=== PATIENT | female | born 1940 | race Caucasian/White ===

== ENCOUNTER → 2023-12-11 06:25 | Outpatient (CLI) | payer OTHER ==
[2023-12-11 08:00] LABS: HEMATOCRIT 35.8 % (36.0-45.00); HEMOGLOBIN 11.8 g/dL (12.0-15.00); MEAN CORPUSCULAR HEMOGLOBIN 25.5 pg (27.00-32.0); MEAN CORPUSCULAR HGB CONC 33.1 g/dl (32.0-36.0); PLATELET COUNT 402 K/uL (150-450); RED BLOOD COUNT 4.65 M/uL (4.00-6.00); RED CELL DISTRIBUTION WIDTH 15.6 % (11.5-14.5)
[2023-12-11 08:03] LABS: URINE APPEARANCE Clear; URINE BILIRRUBIN Negative (NEGATIVE); URINE BLOOD Negative; URINE COLOR Yellow; URINE GLUCOSE Negative (NEGATIVE); URINE LEUKOCYTE Trace; URINE NITRATE Negative; URINE PROTEIN Negative (NEGATIVE)
[2023-12-11 08:04] LABS: URINE BACTERIA 341.4 uL (0.0-1933); URINE EPITHELIAL CELLS 30.4 uL (0.0-38.8); URINE WBC 7.5 uL (0.0-23.2)
[2023-12-11 08:08] LABS: URINE RBC 0.8 uL (0.0-20.8)
[2023-12-11 08:49] LABS: % SATURACION 12.8 % (15-50); ALBUMIN 3.5 gm/dL (3.4-5.0); BILIRUBIN TOTAL 0.38 mg/dL (0.3-1.2); CALCIUM 9.4 mg/dL (8.5-10.1); CREATININE SERUM 0.88 mg/dL (0.55-1.02); FERRITIN 32.6 NG/ML (8-252); GFR 61.37; GLOBULINA 4.1 G/DL (2.4-3.5); POTASSIUM 4.05 mEq/L (3.5-5.1); TOTAL PROTEIN 7.6 gm/dL (6.4-8.2); TSH 3.03 uIU/mL (0.358-3.74)
[2023-12-12 10:11] LABS: CA 125 7.1 U/mL (0.0-38.1); CA 15-3 14.2 U/mL (0.0-25.0); CA 19-9 9 U/mL (0-35)
[2023-12-12 11:52] LABS: MANUAL PLATELET COUNT 426
[2023-12-12 11:53] LABS: PLATELET ESTIMATE NORMAL (NORMAL)
[2023-12-12 12:04] LABS: FOLIC ACID 12.25 ng/ml (4.78-20)
[2023-12-12 14:07] LABS: hgb a 97.4 % (96.4-98.8); hgb a2 2.6 % (1.8-3.2); hgb f 0 % (0.0-2.0); hgb s 0 % (0.0)
== END | disposition home or self-care (01) ==
LOC: LAB 06:25
PROVIDERS: ATTEND Internal Medicine Hematology & Oncology
DX: D51.1 Vitamin B12 deficiency anemia due to selective vitamin B12 malabsorption with proteinuria (principal); D75.839 Thrombocytosis, unspecified; E11.9 Type 2 diabetes mellitus without complications; E78.2 Mixed hyperlipidemia; I10 Essential (primary) hypertension; D50.8 Other iron deficiency anemias; R79.9 Abnormal finding of blood chemistry, unspecified; R74.02 Elevation of levels of lactic acid dehydrogenase [LDH]; K76.89 Other specified diseases of liver; D63.8 Anemia in other chronic diseases classified elsewhere; C50.919 Malignant neoplasm of unspecified site of unspecified female breast; C25.9 Malignant neoplasm of pancreas, unspecified; C56.9 Malignant neoplasm of unspecified ovary; R97.0 Elevated carcinoembryonic antigen [CEA]; D50.9 Iron deficiency anemia, unspecified; E03.9 Hypothyroidism, unspecified; I11.9 Hypertensive heart disease without heart failure; E56.8 Deficiency of other vitamins; N39.0 Urinary tract infection, site not specified; Z12.11 Encounter for screening for malignant neoplasm of colon; R19.5 Other fecal abnormalities; E55.9 Vitamin D deficiency, unspecified; N19 Unspecified kidney failure; D64.9 Anemia, unspecified; D69.1 Qualitative platelet defects; D69.6 Thrombocytopenia, unspecified

== ENCOUNTER → 2024-05-02 07:08 | Outpatient (CLI) | payer OTHER ==
[2024-05-02 08:10] LABS: HEMATOCRIT 36.8 % (36.0-45.00); HEMOGLOBIN 12.3 g/dL (12.0-15.00); MEAN CELL VOLUME 76.7 fL (80.00-100.00); MEAN CORPUSCULAR HEMOGLOBIN 25.8 pg (27.00-32.0); MEAN CORPUSCULAR HGB CONC 33.6 g/dl (32.0-36.0); PLATELET COUNT 569 K/uL (150-450); RED BLOOD COUNT 4.79 M/uL (4.00-6.00)
[2024-05-02 08:25] LABS: ERYTHROCYTE SEDIMENTATION RATE 115 mm/hr
[2024-05-02 08:42] LABS: % SATURACION 10.8 % (15-50); ALBUMIN 3.3 gm/dL (3.4-5.0); BILIRUBIN TOTAL 0.35 mg/dL (0.3-1.2); CALCIUM 9.9 mg/dL (8.5-10.1); CHOL HDL RATIO 2.1 (0-5.0); CREATININE SERUM 0.92 mg/dL (0.55-1.02); FERRITIN 57.4 NG/ML (8-252); GFR 58.3; GLOBULINA 4.9 G/DL (2.4-3.5); POTASSIUM 5.17 mEq/L (3.5-5.1); T4 FREE 1.27 NG/ML (0.76-1.46); TOTAL PROTEIN 8.2 gm/dL (6.4-8.2); TSH 3.72 uIU/mL (0.358-3.74)
[2024-05-02 12:31] LABS: FOLIC ACID 16.42 ng/ml (4.78-20); VITAMIN D3 25 HYDROXY 59.71 ng/ml (30-120)
[2024-05-03 10:31] LABS: MANUAL PLATELET COUNT 786
[2024-05-03 10:33] LABS: PLATELET ESTIMATE INCREASED (NORMAL)
[2024-05-03 15:10] LABS: ERYTHROPOIETIN 13.6 mIU/mL (2.6-18.5)
== END | disposition home or self-care (01) ==
LOC: LAB 07:08
PROVIDERS: ATTEND Internal Medicine Hematology & Oncology
DX: E03.9 Hypothyroidism, unspecified (principal); E55.9 Vitamin D deficiency, unspecified; E11.65 Type 2 diabetes mellitus with hyperglycemia; E78.5 Hyperlipidemia, unspecified; Z13.1 Encounter for screening for diabetes mellitus; I10 Essential (primary) hypertension; E11.9 Type 2 diabetes mellitus without complications; E78.00 Pure hypercholesterolemia, unspecified; D75.839 Thrombocytosis, unspecified; D51.3 Other dietary vitamin B12 deficiency anemia; D50.8 Other iron deficiency anemias; D51.1 Vitamin B12 deficiency anemia due to selective vitamin B12 malabsorption with proteinuria; E78.2 Mixed hyperlipidemia

== ENCOUNTER 2024-08-01 06:55 | Outpatient (CLI) | payer OTHER ==
[2024-08-01 07:35] LABS: HEMATOCRIT 36.9 % (36.0-45.00); HEMOGLOBIN 12.2 g/dL (12.0-15.00); MEAN CELL VOLUME 77.5 fL (80.00-100.00); MEAN CORPUSCULAR HEMOGLOBIN 25.6 pg (27.00-32.0); PH,URINE 5.5 (5.0-8.0); PLATELET COUNT 428 K/uL (150-450); RED BLOOD COUNT 4.77 M/uL (4.00-6.00); RED CELL DISTRIBUTION WIDTH 15.5 % (11.5-14.5); URINE APPEARANCE Clear; URINE BILIRRUBIN Negative (NEGATIVE); URINE BLOOD Negative; URINE COLOR Yellow; URINE GLUCOSE Negative (NEGATIVE); URINE KETONE Negative (NEGATIVE); URINE LEUKOCYTE Small; URINE NITRATE Negative; URINE PROTEIN Negative (NEGATIVE)
[2024-08-01 07:39] LABS: URINE BACTERIA 528.9 uL (0.0-1933); URINE EPITHELIAL CELLS 27.4 uL (0.0-38.8); URINE WBC 26.2 uL (0.0-23.2)
[2024-08-01 07:47] LABS: URINE CAST 0.15 uL (0.0-1.40); URINE RBC 1.5 uL (0.0-20.8)
[2024-08-01 08:26] LABS: % SATURACION 13.4 % (15-50); ALBUMIN 3.8 gm/dL (3.4-5.0); BILIRUBIN TOTAL 0.53 mg/dL (0.3-1.2); CALCIUM 9.5 mg/dL (8.5-10.1); CHOL HDL RATIO 2.2 (0-5.0); CREATININE SERUM 0.9 mg/dL (0.55-1.02); FERRITIN 49.2 NG/ML (8-252); GFR 59.8; GLOBULINA 4.1 G/DL (2.4-3.5); POTASSIUM 4.6 mEq/L (3.5-5.1); TOTAL PROTEIN 7.9 gm/dL (6.4-8.2); TSH 2.02 uIU/mL (0.358-3.74)
[2024-08-01 12:21] LABS: FOLIC ACID > 20.00 ng/ml (4.78-20)
[2024-08-02 11:38] LABS: PLATELET ESTIMATE NORMAL (NORMAL)
== END 2024-08-01 07:03 | disposition home or self-care (01) ==
LOC: LAB 06:55
PROVIDERS: ATTEND Internal Medicine Hematology & Oncology
DX: D50.9 Iron deficiency anemia, unspecified (principal); E03.9 Hypothyroidism, unspecified; E78.2 Mixed hyperlipidemia; I11.9 Hypertensive heart disease without heart failure; E56.8 Deficiency of other vitamins; N39.0 Urinary tract infection, site not specified; Z12.11 Encounter for screening for malignant neoplasm of colon; R19.5 Other fecal abnormalities; E55.9 Vitamin D deficiency, unspecified; N19 Unspecified kidney failure; E11.9 Type 2 diabetes mellitus without complications; D75.839 Thrombocytosis, unspecified; I10 Essential (primary) hypertension; R74.02 Elevation of levels of lactic acid dehydrogenase [LDH]; K76.89 Other specified diseases of liver; D63.1 Anemia in chronic kidney disease; D64.9 Anemia, unspecified; E53.8 Deficiency of other specified B group vitamins; D69.1 Qualitative platelet defects; D68.9 Coagulation defect, unspecified; D69.6 Thrombocytopenia, unspecified; E78.5 Hyperlipidemia, unspecified